=== PATIENT | male | born 1990 | race Caucasian/White ===

== ENCOUNTER 2023-08-02 16:14 | Emergency (ER) | payer OTHER, SELFPAY ==
[2023-08-02] VITALS (20 sets, daily range): BP systolic 131–158; BP diastolic 77–100; PULSE 94–110; RESP 14–26; TEMP 36.2; O2SAT 94–100
--- NOTE | ~2023-08-02 | XR_ITS ---
EXAMINATION: XR chest 1V portable DATE: 08/02/2023 16:56 INDICATION: Mid chest pain. TECHNIQUE: A single frontal view of the chest was obtained. COMPARISON: None. FINDINGS: There is no pneumonia, pleural effusion, or pneumothorax. The heart size is normal. IMPRESSION: 1. No acute cardiopulmonary disease. Reviewed, dictated and finalized at location [facility] [employer]
--- NOTE | 2023-08-02 16:37 | ECG_ITS ---
Measurements Intervals Hector Rate: 105 P: 44 MO: 131 QRS: 33 QRSD: 91 T: 27 QT: 321 QTc: 425 Interpretive Statements SINUS TACHYCARDIA CONSIDER INFERIOR INFARCT, AGE INDETERMINATE BASELINE ARTIFACT- III, AVL, V1, V6 ABNORMAL ECG NO PREVIOUS ECG AVAILABLE FOR COMPARISON Electronically Signed On 08-02-2023 18:13:45 [facility] [employer] by Gabriel Evans D.O.
[2023-08-02 17:07] LABS: D Dimer 0.19 mg/L (0.19-0.50)
[2023-08-02 17:36] LABS: Alanine Aminotransferase 58 U/L (16-63); Alkaline Phosphatase 76 U/L (46-116); Anion Gap 10 mmol/L (8-16); Aspartate Amino Transferase 28 U/L (15-37); Bilirubin,Total 0.6 mg/dL (0.00-1.00); Blood Urea Nitrogen 15 mg/dL (7-18); Calcium 9.4 mg/dL (8.5-10.1); Carbon Dioxide 28 mmol/L (21-32); Chloride 102 mmol/L (98-108); Estimated CRCL calculation 150 ml/min; Estimated Glomerular Filt Rate > 60; Glucose 140 mg/dL (70-99); NT Pro B Type Natriuretic Pept 31 pg/mL (0-125); Osmolality Calculated 292 mOsm/kg (285-295); Potassium 4.1 mmol/L (3.5-5.1); Sodium 140 mmol/L (136-145); Total Protein 7.8 g/dL (6.4-8.2)
[2023-08-02 17:56] LABS: Troponin I 6.6 ng/L (0.00-60.4)
--- NOTE | 2023-08-02 18:18 | ED.CHESTPAIN ---
HPI - Chest Pain General Chief Complaint: Chest Pain Stated Complaint: chest pain Time Seen by Provider: 08/02/23 16:30 Source: patient Mode of arrival: ambulatory Limitations: no limitations History of Present Illness HPI narrative: this is a 33-year-old male who presents with chest discomfort that started earlier, subxiphoid tender with palpation with movement no injury no shortness of breath no nausea vomiting no radiation of his pain. Currently no fever chills no nausea vomiting no abdominal pain no flank pain no dysuria. MD complaint: chest discomfort Onset (ago): hour(s) Timing of current episode: constant Onset: during rest Pain location: subxiphoid Pain radiation: none Severity: mild Quality: aching Relieving factors: nothing Exacerbating factors: palpation Related Data Home Medications Medication Instructions Recorded Confirmed No Home Medications 08/02/23 08/02/23 Allergies Allergy/AdvReac Type Severity Reaction Status Date / Time No Known Allergies Allergy Verified 08/02/23 17:27 Review of Systems Review of Systems: All systems reviewed & are unremarkable except as noted in HPI and below PMFSH Past Medical History Medical History Patient denies medical problems Exam Const: General: cooperative, healthy appearing, comfortable, no acute distress and well developed Neck: Neck: normal visual inspection, full ROM, no lymphadenopathy and no meningeal signs Chest: Chest palpation & inspection: normal inspection of the chest Other: reproducible chest pain with palpation Resp: Effort & Inspection: normal respiratory effort Auscultation: clear to auscultation bilaterally Cardio: Jugular venous distension: no JVD Palpation: normal PMI Rate: regular rate Rhythm: regular rhythm : General: Yes bimanual renal exam normal bilaterally Skin: General skin exam: normal color and no rashes or lesions noted Neuro: General: oriented to person, oriented to place and oriented to time Course Course Emergency Course: EKG performed shows normal sinus rhythm, had blood work that was all within normal limits his blood pressure 140/77 patient is afebrile satting at 99% on room air labs reviewed with patient and advised take Tylenol or Motrin and follow up with his primary. Vital Signs Vital signs: Vital Signs Temperature 36.2 C L 08/02/23 16:14 Pulse Rate 110 H 08/02/23 16:14 Respiratory Rate 16 08/02/23 16:14 Blood Pressure 158/100 H 08/02/23 16:14 Pulse Oximetry 100 08/02/23 16:14 Oxygen Delivery Room Air 08/02/23 16:14 Temperature 36.2 C L 08/02/23 16:15 Pulse Rate 100 08/02/23 17:50 Respiratory Rate 18 08/02/23 16:15 Blood Pressure 140/77 08/02/23 16:15 Pulse Oximetry 99 08/02/23 16:15 Oxygen Delivery Room Air 08/02/23 16:15 MDM - Chest Pain Lab Data 08/02/23 16:50 Labs: Lab Results 08/02/23 Range/Units 16:50 D-Dimer 0.19 (0.19-0.50) mg/L Sodium 140 (136-145) mmol/L Potassium 4.1 (3.5-5.1) mmol/L Chloride 102 (98-108) mmol/L Carbon Dioxide 28 (21-32) mmol/L Anion Gap 10 (8-16) mmol/L BUN 15 (7-18) mg/dL Creatinine 0.95 (0.70-1.30) mg/dL Estim Creat Clear Calc 150 ml/min Estimated GFR > 60 (59 - ) Glucose 140 H (70-99) mg/dL Calculated Osmolality 292 (285-295) mOsm/kg Calcium 9.4 (8.5-10.1) mg/dL Total Bilirubin 0.6 (0.00-1.00) mg/dL AST 28 (15-37) U/L ALT 58 (16-63) U/L Alkaline Phosphatase 76 (46-116) U/L Troponin I 6.6 (0.00-60.4) ng/L NT-Pro-B Natriuret Pep 31 (0-125) pg/mL Total Protein 7.8 (6.4-8.2) g/dL Albumin 4.0 (3.4-5.0) g/dL Critical Care Time Critical Care Time Critical Care Time: No Discharge Plan Discharge Clinical Impression: Costalchondritis Patient Disposition: Home, Self-Care Condition: Stable Instructions: Antibiotic Form, Costochondritis (ED)
== END 2023-08-02 18:26 | disposition home or self-care (01) ==
PROVIDERS: Emergency Provider Emergency Medicine
DX: M94.0 Chondrocostal junction syndrome [Tietze] (principal)
CPT/HCPCS: 36415; 71045; 80053; 83880; 84484; 85380; 93005; 99284